=== PATIENT | male | born 1965 | race Caucasian/White ===

== ENCOUNTER 2019-01-26 08:19 | Inpatient (IN) | payer MEDICAID | END 2019-01-29 21:05 | LOC: ER 08:19 → OVERFLOW 08:20 → TELE-WESTW 20:54 | DX: I13.0 Hypertensive heart and chronic kidney disease with heart failure and stage 1 through stage 4 chronic kidney disease, or unspecified chronic kidney disease (principal); J96.20 Acute and chronic respiratory failure, unspecified whether with hypoxia or hypercapnia; I42.9 Cardiomyopathy, unspecified; N18.3 Chronic kidney disease, stage 3 (moderate); I48.92 Unspecified atrial flutter; I50.43 Acute on chronic combined systolic (congestive) and diastolic (congestive) heart failure; N43.3 Hydrocele, unspecified; N50.819 Testicular pain, unspecified; D50.9 Iron deficiency anemia, unspecified ==